=== PATIENT | male | born 1955 | race Caucasian/White ===

== ENCOUNTER 2017-08-25 21:56 | Inpatient (IN) | payer BC, OTHER ==
[~2017-08-25] VITALS: Ht 188 cm; Wt 108.0 kg
[~2017-08-25 21:56] MED LIST: CIALIS5 MG PO; COLACE100 MG PO; CRESTOR40 MG PO; CYMBALTA60 MG PO; ESOMEPRAZOLE MA20 MG PO; IRON325 M1 PO; KENLAOG,ARISTOC60 ML TP; LISINOPRIL20 MG PO; MULTIVITAMIN1 EAC2 PO; NEURONTIN600 MG PO; NUCYNTA ER100 MG PO; PRESERVISION A1 EAC2 PO; ULTRAM50 MG PO
[2017-08-26 05:58] VITALS: BP 131/66
[2017-08-26 10:36] VITALS: BP 119/56
[2017-08-26 16:03] VITALS: BP 119/57
[2017-08-26 20:18] VITALS: BP 134/61
[2017-08-27 00:27] VITALS: BP 117/57
[2017-08-27 04:12] VITALS: BP 123/57
[2017-08-27 06:28] LABS: CHLORIDE 107 MEQ/L (99-109); GFR ESTIMATE (CALCULATED) > 59 mL/min/ (58.99-99999); GLUCOSE 99 mg/dL (70-99); POTASSIUM 4.2 MEQ/L (3.7-5.4); SODIUM 142 MEQ/L (136-147); UREA NITROGEN (BUN) 14 mg/dL (9-23)
[2017-08-27 08:00] VITALS: BP 119/60
[2017-08-27] MEDS ORDERED: ELIQUIS2.5 MG PO (08:03)
[2017-08-27] MEDS ORDERED: NUCYNTA50 MG PO (08:03)
[2017-08-27 11:54] VITALS: BP 139/66
== END 2017-08-27 15:21 | disposition home or self-care (01) | DRG 470 ==
LOC: ENRESERV 21:56 → 2SOUTH 08-26 05:39 → 3WEST 08-26 09:58 → 2SOUTH 08-26 14:37 → 3WEST 08-27 15:21
PROVIDERS: Orthopaedic Surgery
PROC: 0SRD0J9 Replacement of Left Knee Joint with Synthetic Substitute, Cemented, Open Approach (ICD-10-PCS; principal; 2017-08-26)
DX: M17.12 Unilateral primary osteoarthritis, left knee (principal); F33.9 Major depressive disorder, recurrent, unspecified; G47.30 Sleep apnea, unspecified; N18.9 Chronic kidney disease, unspecified; I12.9 Hypertensive chronic kidney disease with stage 1 through stage 4 chronic kidney disease, or unspecified chronic kidney disease; M06.9 Rheumatoid arthritis, unspecified; K21.9 Gastro-esophageal reflux disease without esophagitis; E78.00 Pure hypercholesterolemia, unspecified; H35.30 Unspecified macular degeneration; Z79.01 Long term (current) use of anticoagulants; Z98.1 Arthrodesis status
CPT/HCPCS: 80048; 94660; C1713; J0690; J1170; J1885; J2250; J2405; J2795; J7050; J7120; L1820; S0020